=== PATIENT | male | born 1995 | race Caucasian/White ===

== ENCOUNTER 2024-11-16 14:05 | Emergency (ER) | payer OTHER, SELFPAY ==
[2024-11-16 14:06] VITALS: BMI 34.9
[2024-11-16 14:37] VITALS: BP 145/90; PULSE 79; RESP 20; TEMP 37.2; O2SAT 96
--- NOTE | 2024-11-16 14:40 | XR_ITS ---
Examination: Knee, left 3 views Technique: Knee AP, lateral, oblique 3 views left knee Date and time of exam: November 16, 2024, 1443 hrs. Indications: Twisting injury to the knee 2 days ago with pain. Findings: Mild narrowing medial joint space There is widening at the patellofemoral joint, clinical correlation advised. There is a large knee effusion seen with internal derangement of the knee. Impression: Abnormal widening patellofemoral joint, recommend axial view of the knee follow-up Large knee effusion
--- NOTE | 2024-11-16 16:34 | XR_ITS ---
Examination: CT left knee, without contrast. 2-D sagittal reconstructions. 2-D coronal reconstructions. 3-D reconstructions. Date and time of exam:January 16, 2025, 1750 hrs. Indications: Knee injury today, patient states knee popped out followed by pain CTDI: vol (mGy):10.5. DLP: (mGycm):305. Technique: Multiple 1.25 mm axial sections of the left knee without intravenous contrast. have been obtained. 2-D sagittal and coronal reconstructions have been obtained. 3-D reconstructions have been obtained. Low dose protocols were performed. One or more of the following dose reduction techniques were used; automated exposure control, adjustment of the mA and/or KV according to patient size, use of iterative reconstruction technique. Findings: Distal femur femoral condyles intact Tibial plateau proximal tibia fibular head and neck intact There is subluxation of the patella laterally with small fracture fragments off the medial patella, axial image 59 There is an acute 3 mm chip fracture axial image 59 which is probably off the anterior femoral condyle from a prior episode of patellar dislocation There is blood in the joint space Impression: Subluxation of the patella laterally Small fracture fragments off the medial patellar and off the anterior femoral condyle consistent with prior complete dislocation of the patella MRI knee without contrast follow-up would confirm tear of the medial patellar retinaculum, marrow edema in the medial patella and anterolateral femoral condyle
[2024-11-16] MEDS: HYDROcodone/APAP 5/325 TABLET 1 TAB PO (16:47)
[2024-11-16] MEDS: DEXAMETHASONE SOD PHOS INJ 10 MG/ML VIAL IM (16:48)
--- NOTE | 2024-11-16 18:53 | EDNOTE_ITS ---
Lower Extremity Injury RME/HPI General Chief Complaint: Extremity Injury, Lower Stated Complaint: INJURY LEFT KNEE YESTERDAY Time Seen by Provider: 11/16/24 14:10 Arrival date/time: 11/16/24 14:05 This is a case of 29-year-old male with no medical history came in in the emergency room due to left knee pain and swelling history of present illness started yesterday when the patient accidentally twisted his left knee and heard something pop and hit his left knee on a concrete sustaining pain and swelling on the anterior left knee no other injuries noted denies any numbness weakness or tingling sensation Limitations: no limitations Related Data Previous Rx's ?Medication ?Instructions ?Recorded Phenazopyridine * (PYRIDIUM *) 200 mg PO TIDPC #12 tab s 06/04/14 hydrocodone 5 mg-acetaminophen 325 1 tab PO Q6H PRN pa in #15 tabs 11/16/24 mg tablet Allergies Allergy/AdvReac Type Severity Reaction Status Date / Time No Known Allergies Allergy Verified 11/16/24 14:07 Review of Systems Review of Systems Systems Reviewed: All systems reviewed, normal except as documented Constitutional Constitutional: Reports system reviewed and no additional complaints, except as documented and Reports as per HPI Cardiovascular Cardiovascular: Reports system reviewed and no additional complaints, except as documented and Reports as per HPI Respiratory Respiratory: Reports system reviewed and no additional complaints, except as documented and Reports as per HPI Gastrointestinal Gastrointestinal: Reports system reviewed and no additional complaints, except as documented and Reports as per HPI Genitourinary Genitourinary: Reports system reviewed and no additional complaints, except as documented and Reports as per HPI Musculoskeletal Musculoskeletal: Reports system reviewed and no additional complaints, except as documented and Reports as per HPI Neurologic Neurologic: Reports system reviewed and no additional complaints, except as documented and Reports as per HPI Past Medical History Social History SMOKING STATUS: Never smoker ED Exam General Limitations: Present no limitations General appearance: Present alert, in no apparent distress and other (Patient is awake alert oriented not in distress nontoxic looking well-hydrated well- nourished) Head Head exam: Present atraumatic, normocephalic and normal inspection Eye Eye exam: Present normal appearance, PERRL and EOMI ENT ENT exam: Present normal exam, normal oropharynx and mucous membranes moist Neck Neck exam: Present normal inspection, full ROM and trachea midline; Absent tenderness, meningismus, lymphadenopathy or thyromegaly Chest Chest inspection: Present normal inspection and symmetric chest wall rise; Absent tenderness Respiratory Respiratory exam: Present normal lung sounds bilaterally; Absent respiratory distress, wheezes, stridor, accessory muscle use or prolonged expiratory phase Cardiovascular Cardiovascular exam: Present regular rate, normal rhythm and normal heart sounds; Absent bradycardia, tachycardia, irregular rhythm, systolic murmur, diastolic murmur, rubs, gallop or clicks Abdominal Exam Abdominal exam: Present soft and normal bowel sounds Extremities Exam Extremities exam: Present normal inspection and full ROM Expanded Lower Extremity Exam Knee exam: Present tenderness, swelling and other (Noted moderate tenderness on the left anterior knee with mild swelling noted a patellar subluxation with knee joint effusion no crepitation no deformity ROM limited due to pain pulses were full and equal capillary refill less than 2 seconds sensory intact negative Romero signs negative Homans sign); Absent abrasion, laceration, ecchymosis, deformity, crepitus, dislocation, erythema, effusion, anterior drawer sign, posterior draw sign, pain with valgus, laxity with valgus, pain with varus, laxity with varus or knee extension intact Back Exam Back exam: Present normal inspection and full ROM Neurological Exam Neurological exam: Present alert, oriented X3, CN II-XII intact, reflexes normal and other (Gait is unstable due to pain on the left knee); Absent motor sensory deficit Psychiatric Psychiatric exam: Present normal affect and normal mood Skin Skin exam: Present warm, dry, intact and normal color Course Quality Measures none Orders Category Date Time Status Apply knee immobilizer NOW Care 11/16/24 16:[address] knee LT wo con Stat Exams 11/16/24 16:34 Completed XR knee LT 3V Stat Exams 11/16/24 14:40 Completed Dexamethasone Inj [Decadron Inj] Med 11/16/24 16:35 Discontinued 10 mg IM X1 ONE HYDROcodone*/APAP 5/325 [[place] 5/325] Med 11/16/24 16:35 Discontinued 1 tab PO X1 ONE Ketorolac Inj [Toradol Inj] Med 11/16/24 16:35 Discontinued 30 mg IM X1 ONE Vital Signs Vital signs: Vital Signs Temperature 98.9 F 11/16/24 14:37 Pulse Rate 79 11/16/24 14:37 Respiratory Rate 20 11/16/24 14:37 Blood Pressure 145/90 H 11/16/24 14:37 Pulse Oximetry (%) 96 11/16/24 14:37 Oxygen Delivery Method Room Air 11/16/24 14:37 Oxygen saturation is 96% in room air Extremity Injury, Lower MDM Narrative MDM Narrative:: This is a case of 29-year-old male with no medical history came in in the emergency room due to left knee pain and swelling history of present illness started yesterday when the patient accidentally twisted his left knee and heard something pop and hit his left knee on a concrete sustaining pain and swelling on the anterior left knee no other injuries noted denies any numbness weakness or tingling sensation physical examination patient is awake alert oriented not in distress nontoxic looking well-hydrated well-nourished patient noted to have moderate tenderness on palpation on the left anterior knee with swelling knee joint effusion and patella subluxation ROM is limited due to pain neurovascular is intact x-ray showed knee joint effusion CT scan of the left knee was also ordered by the suggestion of the radiologist and noted to have patellar fracture and patellar subluxation knee immobilizer was placed with the patient left knee patient tolerated well neurovascular intact patient was given pain medication which improved and resolved the pain patient was advised to see an orthopedic surgeon for further evaluation and treatment of patellar fracture patellar subluxation and knee joint effusion patient was prescribed hydrocodone for pain RICE treatment will continue by the patient at home keep the knee immobilizer and use of crutches was advised worsening symptoms or any emergent concern return precaution in the emergency room advised Patient was discharged with comfortable condition walking with stable gait. Patient verbalized no further complains explained diagnosis and answered patient question. Patient is comfortable with the proposed management plan including the need to follow up with his/her primary care physician and any specialist if applicable Discussed patient for any urgent condition or worsening sx, He/She needed to go to emergency room immediately or call 911. Patient acknowledge the responsibility to follow up as instructed and to monitor her/his symptoms. For any persistence of the symptoms for more than 3-5 days return precaution advised. Discussed the result of the test and was given printed discharge instruction Patient data External records reviewed:: [facility] previous records Clinical information provided by:: patient Social determinants that could affect healthcare access:: none Patient has the following chronic illnesses:: None How is presenting disease/condition affected by chronic disease/condition?: no chronic disease Evaluation data The following diagnostics were reviewed and interpreted by me:: radiology exam(s) Lab and/or radiology exams considered but not ordered:: Reviewed Interpretation Summary: Reviewed Medications / Prescriptions Medications or Prescriptions considered but not ordered:: Given Medication administrations:: Medication Administration History Discontinued Medications Hydrocodone Bitart/Acetaminophen (Hydrocodone/Apap 5/325 Tablet) 1 tab PO X1 ONE Stop: 11/16/24 16:36 Last Admin: 11/16/24 16:47 Dose: 1 tab Documented By: RANDI Dexamethasone Sodium Phosphate (Dexamethasone Sod Phos Inj 10 Mg/Ml Vial) 10 mg IM X1 ONE Stop: 11/16/24 16:36 Last Admin: 11/16/24 16:48 Dose: 10 mg Documented By: RANDI Ketorolac Tromethamine (Ketorolac Inj 60 Mg/2 Ml Vial) 30 mg IM X1 ONE Stop: 11/16/24 16:36 Last Admin: 11/16/24 16:47 Dose: Not Given Documented By: RANDI Non-Admin Reason: Other, see note Given Consultations Consultation(s) initiated? (list below): No Diagnosis Extremity Injury, Lower Differential Diagnosis: other (Knee sprain knee fracture knee contusion) Most likely diagnosis given after review of the tests above:: Patellar subluxation patellar fracture knee joint effusion Admission Indicated Admission indicated?: not indicated Explain why admission is indicated or not indicated:: Not indicated Admission Request Was there a request for admission?: No Admission Attestation Admission request attestation: Not indicated Disposition Plan Disposition Plan: Discharge Discharge Attestation Discharge Attestation: The patient and all family members were given an opportunity to ask questions and understood the discharge instructions. Discharge instructions specifically effects, indications for sooner follow up or return to the emergency department, and the expected course of current diagnosis. Patient condition: Stable Discharge Plan Plan Patient Disposition: HOME (Self Care) Patient condition on transfer: Stable Prescriptions/Referrals Prescriptions/Med Rec: New hydrocodone-acetaminophen 5-325 mg tablet 1 tab PO Q6H MDD max 4 tabs per day PRN (Reason: pain) Qty: 15 0RF No Action Phenazopyridine * (PYRIDIUM *) 200 MG tablet 200 mg PO TIDPC Qty: 12 0RF Referrals: Divya Torres PA-C ([facility]) [Primary Care Provider] - In 1 week Lloyd Shaffer MD [Physician] - 11/17/24 (For further evaluation and treatment of patellar subluxation patellar fracture large knee effusion of the left knee) Problem List Clinical Impression: Acute knee pain, Patellar subluxation, Patellar fracture, Joint effusion, knee Patient/Caregiver Discharge Instructions Education Materials: ED Knee Immobilizer, ED Knee Effusion, ED Fracture, Knee, ED Patellar Dislocation/Subluxation, ED Patella Fracture, ED RICE Additional Instructions: Follow-up with your primary care physician in 2 days for reevaluation and to be referred to orthopedic surgeon for further evaluation and treatment of knee joint effusion patellar fracture and patellar subluxation need to have MRI of the left knee to rule out meniscus or ligament injury recurrence persistent worsening symptoms or any emergent concerns such as numbness weakness tingling sensation call 911 or go to the nearest emergency room ice pack every 2 hours for 20 minutes 24 hours then alternate with warm compress elevate to decrease swelling keep the knee immobilizer and use of crutches for ambulation no weightbearing on the left knee is advised Print Language: Bulgarian Stand Alone Forms: Maegan Award Info., Work/School Release, Patient Portal Info Letter PA/FERMENTATION SCIENTIST Supervising Physician PA/TRACEE Supervising Physician: dr ahn
== END 2024-11-16 19:27 | disposition home or self-care (01) ==
PROVIDERS: Emergency Provider Nurse Practitioner Family; PCP Nurse Practitioner Family
DX: S82.002A Unspecified fracture of left patella, initial encounter for closed fracture (principal); S83.012A Lateral subluxation of left patella, initial encounter; X50.1XXA Overexertion from prolonged static or awkward postures, initial encounter
CPT/HCPCS: 73562; 73700; 96372; 99284; J1100; A9270

== ENCOUNTER 2024-12-11 08:11 | Outpatient (AMB) | payer OTHER, MEDICAID, SELFPAY ==
[2024-12-11 08:26] VITALS: BP 125/87; PULSE 72; RESP 16; TEMP 36.5; O2SAT 96; BMI 35.6
--- NOTE | 2024-12-11 08:26 | PD.ORTHCLVIS ---
Vital signs 12/11/24 08:26 Height 1.75 m Height Method Measured Weight 109.429 kg Weight Measurement Method Standing Scale BMI 35.6 BP 125/87 H Blood Pressure Source Automatic Cuff Blood Pressure Location Left Upper Arm Position Sitting Respiration 16 Pulse 72 Pulse Source Monitor Temp 97.7 F Temp Source Temporal Artery Scan Pulse Oximetry (%) 96 Oxygen Delivery Method Room Air Med/Allergies Allergies & Medications Allergies No Known Allergies Allergy (Verified 12/11/24 08:26) Medication Reconciliation Phenazopyridine * (PYRIDIUM *) 200 mg PO TIDPC #12 tabs 06/04/14 [Rx Confirmed 12/11/24] hydrocodone 5 mg-acetaminophen 325 mg tablet 1 tab PO Q6H PRN pain #15 tabs 11/16/24 [Rx Confirmed 12/11/24] meloxicam 7.5 mg tablet 7.5 mg PO QDAY #45 tabs 12/11/24 [Rx] Exam Exam Patient is in no acute distress and is cooperative with the examination today. Breathing is nonlabored. Patient has a normal mood and affect. The patient has a gait that is nonantalgic Bilateral extremities were evaluated and demonstrates sensation intact to light touch. Palpable pedal pulses are present. No significant edema is present. Bilateral hips were examined. The patient has no pain with log roll of the hips. Internal rotation to 30 degrees and external rotation to 30 degrees is painless. Negative FADIR. Right knee was examined today. The right knee is in reasonable alignment. Range of motion from 0-120 degrees. Knee is stable to varus and valgus as well as AP translation with <5mm. Patient has a negative McMurrays. There is no pain with patellofemoral compression and no crepitus noted. The knee is nontender to palpation. Left knee was examined today. The left knee is in neutral alignment. Range of motion from 0-120 degrees. Knee is stable to varus and valgus as well as AP translation with <5mm. Patient has a negative McMurrays. There is no pain with patellofemoral compression and no crepitus noted. The knee is nontender to palpation diffusely. He has no patellar apprehension. This patella does not feel mobile Left knee x-rays demonstrate no pathology. CT demonstrates Patellar tilt Assessment and Plan Problem List (1) Patellar instability: Status: Acute Plan: ASSESSMENT AND PLAN 1. Left knee pain: The left knee pain is likely due to a patellar dislocation, which appears stable upon examination. There is no evidence of a chip fracture. The presence of blood in the joint is noted, which is common following a traumatic event and should resolve spontaneously. The outer quadriceps muscles are likely stronger than the inner ones, causing a lateral pull on the patella. An MRI of the left knee will be ordered to further investigate the cause of the pain. Physical therapy will be initiated to strengthen the vastus medialis muscle. An anti-inflammatory medication will be prescribed for daily use over a week, after which it can be gradually reduced. He is expected to return to work in approximately 4 weeks. Follow-up: A follow-up appointment will be scheduled in 4 to 6 weeks. Office Procedures GNS Level of Care Nursing/Assessment Patient Status: Initial/New Patient Nursing Assessment/Reassesment: Medication Reconciliation, Update PMH in EMR and Vital Signs Coordination of Care: Complex Care and Chronic Disease 1-5, Education Complex Pt/Fam, Consent,records obtained, informed consent, Lab and Imaging orders, Results/Orders obtained and Staff clarify orders New Patient Charge New Patient Point Assignment: 1109 New Patient Point Charge: SUSTAINABILITY COACH Level 3 ([id number]) MA Intake Visit Data Collection New Patient or Established: New Patient (never been to [facility]) Reason for Visit:: LEFT KNEE PAIN Seen by Clinical Staff ONLY (RN/MA): No Reading Specialist Required: No PCP or OBGYN visit in last 3 months: Yes Hx Now: No Do You Feel Safe at Home: Yes Authorities Contacted: N/A Questionairres Past Medical History Past Medical History Have you ever been diagnosed with any of the following: Subjective Visit Visit for: new patient and knee Immunization / Flu Flu Vaccine in the Last 12 Months: No Flu Vaccine Exclusion Criteria: Refused by Patient History of Present Illness Chief complaint: LEFT KNEE PAIN Date of injury / onset of symptoms: 11/15/2024 HISTORY OF PRESENT ILLNESS I, Isaac Richey, have obtained verbal consent from the patient, to be recorded during this encounter which may include, but not limited to, medical history, examination, treatment plans, and relevant health information.? Patient was informed that recording will be read and reviewed by myself before inclusion in the medical chart. The patient is a 29-year-old male who presents today with left knee pain. He has been experiencing left knee pain since 11/15/2024, which he rates as 2 out of 10 in severity. The incident occurred when he was sitting too close to a table, limiting his maneuverability. Upon standing and twisting to his right, he heard a double pop, indicating a dislocation. The second pop signaled the relocation of the patella. This was his first experience with such an issue. Following the incident, his knee was swollen for over a week, during which time he elevated, iced, and wrapped it. He also reports occasional swelling and stiffness in his knee, particularly when he sleeps on his side with his leg bent. He is keen to fully recover before returning to work. He has not received any anti-inflammatory medication. He has not had injections but has undergone approximately 12 sessions of physical therapy, which he finds beneficial. He has also tried ibuprofen, which provides some relief. He had imaging around the same time at [facility]. He recalls undergoing physical therapy for a bone bruise more than a decade ago. SOCIAL HISTORY Occupations: Works in utility, making boxes and handling pallets. Personal History Occupation: UTILITY Red flag PMH: smoker (1 CIGAR A DAY) BMI Counceling provided: No Pain Pain level (0-10): 2 Pain location: posterior Pain quality: sharp Pain timing: night Associated signs & symptoms: none Ambulatory data Ambulatory device: none Treatments Number of previous injections: 0 Improvement with previous injections: No Number of Physical Therapy sessions: 12 Improvement with PT: Yes Improvement with NSAIDS: yes Review of Systems Review of Systems: All systems negative unless otherwise noted in HPI.
== END 2024-12-11 08:38 | disposition home or self-care (01) ==
LOC: HODSRG 08:11
PROVIDERS: PCP Nurse Practitioner Family; Referring Provider Nurse Practitioner Family; Supervising Provider Orthopaedic Surgery Adult Reconstructive Orthopaedic Surgery; Visit Provider Orthopaedic Surgery Adult Reconstructive Orthopaedic Surgery
DX: M23.52 Chronic instability of knee, left knee (principal); M25.562 Pain in left knee; F17.210 Nicotine dependence, cigarettes, uncomplicated
CPT/HCPCS: 99203; G0463

== ENCOUNTER 2025-01-05 15:00 | Outpatient (RCR) | payer OTHER, MEDICAID, SELFPAY ==
--- NOTE | 2024-12-29 12:47 | PTNOTE_ITS ---
PT OP Initial Eval Patient Information Outpatient Physical Therapy Treatment Date: 12/29/24 Visit Reasons: Patella dislocation Medical Diagnosis: Left Knee Patella Dislocation Treatment Dx #1: Left Knee Pain Start of Care: 12/29/24 Date of Onset: 11/15/24 Smoking Status Smoking Status: Never smoker Initial Assessment Subjective: Pt is a 29 y/o male reports of left knee cap dislocation after getting up the wrong way from sitting in a restaurant. Pt's most recent CT scan found lateral subluxation of the patella and small fracture of medial patella. Pt is pending knee MRI next week. Pt has return back to work a few days ago. Pt still has limitation with deep squatting, kneeling, balance, single limb activities, and performing recreational activities. Objective: Left Knee AROM: all motions are WNL Left Knee MMTs: grossly 4-/5 Left Hip MMTs: grossly 4-/5 Special Test (-) Michela (-) ant knee compression test Assessment: Pt demonstrate left knee pain leading to difficulty with ADLs. Pt will attempt physical therapy if pain persist Pt will be refer back to provider for further consultation. 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 1) Increase left knee MMTs grossly to 4/5 in 6 wks to be able to perform squatting activities 2) Increase left hip MMTs grossly to 4/5 in 6 wks to be able to perform recreational activities 3) Increase SLS to 30 sec in 6 wks to be able to perform balance activities 4) Decrease knee pain to 2/10 in 6 wks to be able to perform work duties 5) Indep with HEP Treatment Plan 1) Manual Therapy 2) Therapeutic Activities 3) Therapeutic Exercises 4) Modalities (ice, heat) 5) Balance Training 6) Gait Training Frequency and Duration: 2 x wk for 6 wks Certification Dates: 12/29/24 to 03/31/25 Procedure Charges OP PT Eval Mod Complex 30 minutes: Yes
--- NOTE | 2025-01-05 15:13 | PT.ODAYNRPT ---
PT Outpatient Daily Note OP Daily Note Outpatient Physical Therapy Treatment Date: 01/05/25 Visit Reasons: Patella dislocation Subjective: Pt's knee is feeling better. Pt mentioned he has to reschedule his MRI appt due to change in appt. Pt still notice some swelling around the knee. Objective: Please see flow chart for list of ther ex performed Assessment: tolerate exercises with minimal pain; cues to pace throughout PT session to decrease fatigue Plan: Conitnue with PT Length of Time (minutes) of Treatment: 30 Minutes Procedure Charges Therapeutic Exercise 30 minutes: Yes
== END 2025-01-15 23:59 | disposition home or self-care (01) ==
LOC: CPTX 15:00
PROVIDERS: PCP Nurse Practitioner Family; Referring Provider Orthopaedic Surgery Adult Reconstructive Orthopaedic Surgery; Visit Provider Orthopaedic Surgery Adult Reconstructive Orthopaedic Surgery
DX: M25.562 Pain in left knee (principal); S82.002D Unspecified fracture of left patella, subsequent encounter for closed fracture with routine healing; X58.XXXD Exposure to other specified factors, subsequent encounter
CPT/HCPCS: 97110; 97162

== ENCOUNTER 2025-01-19 11:01 | Outpatient (RCR) | payer OTHER, MEDICAID, SELFPAY ==
--- NOTE | 2025-01-19 11:51 | PT.ODAYNRPT ---
PT Outpatient Daily Note OP Daily Note Outpatient Physical Therapy Treatment Date: 01/19/25 Visit Reasons: left patella dislocation Subjective: Pt reports knee is doing ok, no complaints. Objective: Please see flow sheet for ther ex lsit. Assessment: Interventions assigned completed with no knee pain. Plan: Continue with pOC. Length of Time (minutes) of Treatment: 30 Minutes Procedure Charges Therapeutic Exercise 30 minutes: Yes
--- NOTE | 2025-03-09 09:06 | PTNOTE_ITS ---
PT OP Progress/Discharge Note Date of Service: 03/09/26 Progress Note/DC Note Progress Note/Discharge Note: DC Note Patient Information Visit Reasons: left patella dislocation Service Continue Service or Discharge: Discharge Discharge Date: 03/09/25 Status Assessment: Pt has been seen for 3 visits (eval + 2 visits). Pt last treated on 01/19/25 and no showed 01/27/25 appt. At this time Pt will be d/c from care due to non- compliance per attendance policy. Pt did not meet set goals in therapy; thank you for your referrals
== END 2025-02-14 23:59 | disposition home or self-care (01) ==
LOC: CPTX 11:01
PROVIDERS: PCP Orthopaedic Surgery Adult Reconstructive Orthopaedic Surgery; Referring Provider Orthopaedic Surgery Adult Reconstructive Orthopaedic Surgery; Visit Provider Orthopaedic Surgery Adult Reconstructive Orthopaedic Surgery
DX: M25.562 Pain in left knee (principal); R26.89 Other abnormalities of gait and mobility; S82.002D Unspecified fracture of left patella, subsequent encounter for closed fracture with routine healing; X58.XXXD Exposure to other specified factors, subsequent encounter
CPT/HCPCS: 97110